=== PATIENT | female | born 1945 | race Caucasian/White ===

== ENCOUNTER → 2022-02-01 | Outpatient (CLI) | payer MEDICARE ==
[2022-02-01 13:34] LABS: BASO # 0.06 K/mm3 (0.02-0.10); EOS # 0.14 K/mm3 (0.04-0.40); EOS % 1.3 % (1.0-5.0); HEMATOCRIT 45.4 % (37.0-47.0); HEMOGLOBIN 14.6 g/dL (12.5-16.0); LYMPH# 1.95 K/mm3 (1.50-4.00); MEAN CELL VOLUME 93 fl (78-100); MEAN CORPUSCULAR HEMOGLOBIN 30 pg (27-31); MEAN CORPUSCULAR HGB CONC 32 g/dL (33-37); MEAN PLATELET VOLUME 10.4 fl (7.4-10.4); MONO # 0.59 K/mm3 (0.20-0.80); PLATELET COUNT 322 K/mm3 (130-400); RED BLOOD COUNT 4.89 M/mm3 (4.10-5.30); WHITE BLOOD COUNT 10.6 K/mm3 (4.8-10.8)
[2022-02-01 13:44] LABS: ALBUMIN 4.8 g/dL (3.4-4.8); SODIUM 143 mmol/L (136-145)
[2022-02-01 13:45] LABS: CALCIUM 9.6 mg/dL (8.3-10.5)
[2022-02-01 13:46] LABS: GLUCOSE 124 mg/dL (65-105); TOTAL PROTEIN 7.8 g/dL (6.2-8.1)
[2022-02-01 13:47] LABS: CARBON DIOXIDE 22 mmol/L (23-31)
[2022-02-01 13:48] LABS: TOTAL BILIRUBIN 0.4 mg/dL (0.2-1.2)
[2022-02-01 13:51] LABS: AST-SGOT 18 U/L (5-34)
[2022-02-01 13:53] LABS: ALT/SGPT 16 U/L (0-55)
[2022-02-01 14:00] LABS: TROPONIN-I < 0.030 ng/mL (<0.030)
== END ==
LOC: LAB 13:11
PROVIDERS: Nurse Practitioner Family
DX: E04.2 Nontoxic multinodular goiter (principal); R07.9 Chest pain, unspecified